=== PATIENT | female | born 1990 | race Caucasian/White ===

== ENCOUNTER 2021-04-18 13:37 | Emergency (ER) | payer OTHER ==
[~2021-04-18 13:37] MED LIST: DELSYM30 MG/5 ML PO; FLONASE 0.05% N16 GM; IBUPROFEN600 MG PO
[2021-04-18 14:43] LABS: HEMOGLOBIN 13.6 gm/dl (12.3-15.3); RED BLOOD COUNT 4.4 M/UL (4.00-5.10); WHITE BLOOD COUNT 5.2 K/UL (4.5-11.0)
[2021-04-18 15:04] LABS: BUN/CREATININE RATIO 13 (0-10)
[2021-04-18] MEDS ORDERED: ZOFRAN ODT 4 MG4 MG PO (16:47)
[2021-04-18] MEDS ORDERED: BENTYL 10MG CAP10 MG PO (16:47)
== END 2021-04-18 17:00 | disposition home or self-care (01) ==
LOC: ER1 13:37
PROVIDERS: Emergency Medicine
DX: R10.33 Periumbilical pain (principal); J45.909 Unspecified asthma, uncomplicated; F17.200 Nicotine dependence, unspecified, uncomplicated
CPT/HCPCS: 71045; 80053; 81001; 83605; 83690; 84703; 85025; 99284; Q9967

== ENCOUNTER → 2021-05-18 | Outpatient (CLI) | payer OTHER ==
[~2021-05-18] MED LIST changes: +BENTYL 10MG CAP10 MG PO; +ZOFRAN ODT 4 MG4 MG PO
== END ==
LOC: RAD 13:13
DX: R05 Cough (principal); M54.2 Cervicalgia; M54.9 Dorsalgia, unspecified; M47.814 Spondylosis without myelopathy or radiculopathy, thoracic region
CPT/HCPCS: 71046; 72050; 72072; 72110

== ENCOUNTER → 2021-06-28 | Outpatient (CLI) | payer OTHER | LOC: KOH-I 13:49 | DX: S92.912A Unspecified fracture of left toe(s), initial encounter for closed fracture (principal) | CPT/HCPCS: 73630 ==

== ENCOUNTER 2022-08-20 04:53 | Emergency (ER) | payer OTHER ==
[2022-08-20 05:41] LABS: HEMOGLOBIN 14.1 gm/dl (12.3-15.3); RED BLOOD COUNT 4.62 M/UL (4.00-5.10); WHITE BLOOD COUNT 7.7 K/UL (4.5-11.0)
[2022-08-20 06:06] LABS: BUN/CREATININE RATIO 8 (0-10)
== END 2022-08-20 07:01 | disposition home or self-care (01) ==
LOC: ER1 04:53
PROVIDERS: Emergency Medicine
DX: R07.89 Other chest pain (principal); F17.200 Nicotine dependence, unspecified, uncomplicated
CPT/HCPCS: 71045; 80053; 82550; 82553; 84484; 85025; 93005; 99285